=== PATIENT | male | born 1960 | race Caucasian/White ===

== ENCOUNTER → 2018-03-20 10:54 | Outpatient (CLI) | payer OTHER, MEDICAID, SELFPAY ==
--- NOTE | 2018-03-20 | DI.US.S_ITS ---
PROCEDURE: US ARTERIAL DUPLEX LE BI INDICATIONS: PERIPHERAL VASCULAR DISEASE TECHNIQUE: Color and pulse Doppler interrogation was performed of both lower extremity arterial systems, with image documentation. COMPARISON: None. FINDINGS: Normal-appearing, triphasic and biphasic waveforms are seen. The flow velocities are likewise within normal limits. No focal area of increased flow velocity is seen to suggest a focal stenosis. Antegrade flow is confirmed to the distal aspects of each of the trifurcation vessels. No significant rawls scale abnormality is seen. IMPRESSION: No hemodynamically significant stenosis can be seen. Dictated by: Mookie Chávez M.D. on 03/20/2018 at 12:12 Approved by: Mookie Chávez M.D. on 03/20/2018 at 12:13
== END ==
PROVIDERS: Visit Provider Family Medicine
DX: I73.9 Peripheral vascular disease, unspecified (principal)
CPT/HCPCS: 93925

== ENCOUNTER → 2018-09-01 08:09 | Outpatient (CLI) | payer OTHER, MEDICAID, SELFPAY ==
--- NOTE | 2018-09-01 09:41 | PM.TREADMILL ---
Cardiac Stress Test Report Referral & Results Date Patient Seen: 09/01/18 Requesting provider: Carmine Mcknight Indication: Tachycardia, dizziness, murmur Rest ECG: Unremarkable Procedure Note: Today following both written and verbal informed consent, the patient was exercised according to a standard [facility] protocol. The patient exercised for a total of 8 minutes 16 seconds achieving a maximum heart rate of 159. Patient's maximum systolic blood pressure was 170. This was an estimated 10.1 MET's. Patient did experience lightheadedness and dizziness at the end of exercise which caused him to stop the test. No cardiac dysrhythmia was noted. He did have more frequent PVCs beginning about that time until his heart rate slowed down some. No ST-T segment changes Normal heart rate and blood pressure response to exercise Function aerobic impairment rated about 5% on the sedentary scale Impression: No evidence of ischemia Increased PVCs with increased activity and at least temporally correlated with symptoms. (Patient reports normal echo done previously however) Clinical correlation suggested Please note: Actual ECG tracings can be found in the PACS system.
== END ==
PROVIDERS: PCP Family Medicine; Visit Provider Internal Medicine Cardiovascular Disease
DX: R01.1 Cardiac murmur, unspecified (principal); R00.0 Tachycardia, unspecified; R42 Dizziness and giddiness
CPT/HCPCS: 93016; 93017; 93018

== ENCOUNTER → 2019-09-12 09:33 | Outpatient (CLI) | payer OTHER, SELFPAY ==
[2019-09-13 08:29] LABS: COVID19 Sendout Not Detected (Not Detect)
== END ==
PROVIDERS: PCP Family Medicine; Visit Provider Physician Assistant
DX: Z01.818 Encounter for other preprocedural examination (principal)
CPT/HCPCS: 87635

== ENCOUNTER 2019-09-15 14:34 | Outpatient (CLI) | payer OTHER, SELFPAY ==
[2019-09-15] VITALS (8 sets, daily range): BP systolic 118–134; BP diastolic 65–89; PULSE 85–93; RESP 15–16; TEMP 36.5; O2SAT 91–96
--- NOTE | 2019-09-15 14:35 | DI.RAD.S_ITS ---
PROCEDURE: PAIN L/S FACET INJ/BLK 1ST PAVAN COMPARISON: None. INDICATIONS: SPONDYLOSIS FINDINGS: Fluoroscopic spot filming was performed to verify placement of spinal needles at the L4-L5, L5-S1 level(s), as labeled on the films. Appropriate location(s) of the needle tip(s) was confirmed by injection of iodinated contrast. Dictated by: Chan Betancourt M.D. on 09/15/2019 at 16:08 Approved by: Chan Betancourt M.D. on 09/15/2019 at 16:09
[2019-09-15] MEDS: BETAMETHASONE 30 MG/5 ML MDV 12 MG INJ (15:04)
[2019-09-15] MEDS: BUPIVACAINE 0.5% (PF) VIAL 5 ML INJ (15:04)
[2019-09-15] MEDS: MIDAZOLAM 5 MG/5 ML VIAL IV (15:04)
[2019-09-15] MEDS: IOPAMIDOL 15 ML VIAL 3 ML INJ (15:04)
[2019-09-15] MEDS: LIDOCAINE 1% 20 ML 10 ML INJ (15:04)
[2019-09-15] MEDS: fentaNYL 100 MCG/2 ML INJ 50 MCG IV (15:04)
--- NOTE | 2019-09-15 15:23 | P.PCN_ITS ---
Procedures Date/Time Date of procedure: 09/15/19 Time of procedure: 15:24 General Procedure description: PREOP DIAGNOSIS 1. FACET ARTHROPATHY 2. AXIAL LBP 3. MULTILEVEL DDD POST OP DIAGNOSIS 1. FACET ARTHROPATHY 2. AXIAL LBP 3. MULTILEVEL DDD PROCEDURES 1. FLUORSCOPICALLY GUIDED CONTRAST CONTROLLED FACET JOINT INJECTIONS BILATERAL L4/5, L5/S1 PHYSICIAN: Shiva Martell, DO INDICATIONS Jailene is referred for treatment of Axial LBP FINDINGS Multilevel Facet Arthropathy with Clinically significant axial LBP DESCRIPTION OF PROCEDURE Fluoroscopically guided, contrast-controlled bilateral L4/5, L5/S1 facet joint injections. Following review of allergy and review of potential side effects and complications, including, but not necessarily limited to, infection, allergic reaction, local tissue breakdown, stroke, temporary or permanent nerve injury, paralysis, and possible , the patient indicated that the patient understood and agreed to proceed. An informed consent document was signed by the patient, witnessed by a nurse, and placed in the patient's chart. Additionally, other treatment options including medications, modalities, and physical therapy were reviewed with the patient. After review of previous anaesthesic history and IV conscious sedation the patient was deemed safe to proceed with todays procedure with IV conscious sedation as ASA class II designation. Safety time-out was performed to confirm patient ID, procedure to be performed and site of procedure. IV sedation was accomplished with a combination of 2mg of Versed and 50mcg of Fentanyl was administered by the RN after DO order, titrated to patient comfort during the course of the procedure while the patient remained responsive to all verbal commands In the prone position, following sterile prep and drape of the lumbar region, the posterior aspect of the L4/5, L5/S1 facet joints were identified fluoroscopically. The skin was anesthetized via a 25-gauge 1.5-inch needle with 1% lidocaine solution into the corresponding facet joints. At this point, a 22- gauge 3.5-inch spinal needle was atraumatically introduced and advanced under fluoroscopic guidance into the corresponding facet joints. Following negative aspiration, injections of approximately 0.2cc of Isovue 200 confirmed interarticular placement without vascular uptake. The identical procedure was then performed at the L4/5, L5/S1 facet joints on the left. Radiological data, including multiple fluoroscopic views of the lumbosacral spine, reveal a spinal needle at the L4/5, L5/S1 facet joints bilaterally. Subsequent views show flow of contrast material both superiorly and inferiorly within the joint space without vascular or intrathecal uptake. At this point, a total of 0.5cc including a mixture of 0.25cc Marcaine and 0.25cc betamethasone was injected without complication into each of the corresponding facet joints. The patient tolerated the procedure well without signs or symptoms of complications prior to transfer to the recovery area continued monitoring without incident. The patient was then transferred to the recovery area where they were observed for an appropriate period of time after the injection. The patient reported a VAS score of 7 prior to the procedure and a post- procedure VAS of 0. Total Fluoroscopy Time: 12 seconds Total Conscious Sedation Time: 24min POST OP INSTRUCTIONS The patient was provided a Pain Log to continue to record their response to the target-specific procedure prior to follow-up visit with their referring physician. Additionally, specific post-injection care instructions and a contact number to our office were provided if concerns arise regarding possible complications associated with the procedure are suspected. Shiva Martell, Complications: none
--- NOTE | 2019-09-15 15:33 | PC.NURSE ---
Tolerated procedure well, assisted off table to wc with 1PA. Transported to post procedure for continued monitoring by JALEEL Xiao
== END 2019-09-15 15:41 | disposition home or self-care (01) ==
LOC: RAD 14:34
PROVIDERS: Referring Provider Physical Medicine & Rehabilitation; Visit Provider Physical Medicine & Rehabilitation
DX: M47.816 Spondylosis without myelopathy or radiculopathy, lumbar region (principal); M47.817 Spondylosis without myelopathy or radiculopathy, lumbosacral region; M51.36 Other intervertebral disc degeneration, lumbar region; M51.37 Other intervertebral disc degeneration, lumbosacral region
CPT/HCPCS: 64493; 64494; 99152; J0702; J2250; J3010

== ENCOUNTER → 2020-01-30 14:13 | Outpatient (CLI) | payer OTHER, SELFPAY ==
[2020-02-01 07:52] LABS: COVID19 Sendout Not Detected (Not Detect)
== END ==
PROVIDERS: Visit Provider Physician Assistant
DX: Z01.812 Encounter for preprocedural laboratory examination (principal)
CPT/HCPCS: 87635

== ENCOUNTER 2020-02-02 14:31 | Outpatient (CLI) | payer OTHER, SELFPAY ==
[2020-02-02] VITALS (8 sets, daily range): BP systolic 120–143; BP diastolic 78–97; PULSE 83–93; RESP 15–25; O2SAT 94–96
--- NOTE | 2020-02-02 14:31 | DI.RAD.S_ITS ---
PROCEDURE: PAIN L/S FACET INJ/BLK 1ST PAVAN COMPARISON: [facility], , PAIN L/S FACET INJ/BLK 1ST PAVAN, 09/15/2019, 14:08. INDICATIONS: SPONDYLOSIS FINDINGS: Fluoroscopic spot filming was performed to verify placement of spinal needles at the right L4, L5, S1 and left L4, L5, S1 level(s). Appropriate location(s) of the needle tip(s) was confirmed by injection of iodinated contrast. IMPRESSION: Intraoperative guidance provided. Dictated by: Prasanth Blanca M.D. on 02/02/2020 at 17:40 Approved by: Prasanth Blanca M.D. on 02/02/2020 at 17:42
[2020-02-02] MEDS: fentaNYL 100 MCG/2 ML INJ 50 MCG IV (15:42)
[2020-02-02] MEDS: MIDAZOLAM 5 MG/5 ML VIAL IV (15:42)
[2020-02-02] MEDS: BUPIVACAINE 0.5% (PF) VIAL 5 ML INJ (15:49)
[2020-02-02] MEDS: IOPAMIDOL 15 ML VIAL 3 ML INJ (15:49)
[2020-02-02] MEDS: LIDOCAINE 1% 20 ML 10 ML INJ (15:49)
--- NOTE | 2020-02-02 16:00 | P.PCN_ITS ---
Date/Time/Diagnoses Date of procedure: 02/02/20 Time of procedure: 16:00 Pre-procedure diagnosis: 1. FACET ARTHROPATHY Post-procedure diagnosis: same Procedure Notes Procedure: 1. BILATERAL- L4, L5 and S1 DIAGNOSTIC MB BLOCKS with LA Anesthetic Indications: Jailene is referred by Dr. Francis for treatment of Bilateral Axial LBP. Physician: Shiva Martell Total Fluoroscopy time (seconds): 14 Total sedation minutes: 16 Complications: none Procedure in detail & Post-procedure care: DESCRIPTION OF PROCEDURE Fluoroscopically guided, contrast-controlled bilateral L4, L5 and S1 medial branch blocks with 0.5cc of 0.5% Marcaine. Following review of allergy and review of potential side effects and complications, including, but not necessarily limited to, infection, allergic reaction, local tissue breakdown, nerve injury, paralysis, stroke and possible , the patient indicated that the patient understood and agreed to proceed. An informed consent document was signed by the patient, witnessed by a nurse, and placed in the patient's chart. After review of previous anaesthesic history and IV conscious sedation the patient was deemed safe to proceed with today's procedure with IV conscious sedation as ASA class II designation. Safety time-out was performed to confirm patient ID, procedure to be performed and site of procedure. IV sedation was accomplished with a combination of 3mg of Versed and 50mcg of Fentanyl was administered by the RN after DO order, titrated to patient comfort during the course of the procedure while the patient remained responsive to all verbal commands In the prone position, following sterile prep and drape of the lumbar region, the right L4, L5 and S1 anatomical location of the medial branch of the dorsal ramus was identified fluoroscopically. Subsequently an anesthetic skin wheal using 1% lidocaine solution was initiated at each of the anatomical spots. Subsequently then a 22-gauge 3.5-inch spinal needle was atraumatically introduced and advanced under fluoroscopic guidance at each of the corresponding sites at the right L4, L5 and S1 MB. After negative aspiration, 0.2cc of Isovue 200 was injected, confirming placement without vascular or intrathecal uptake. Subsequently then 0.5cc of 0.5% Marcaine solution was injected at each of the corresponding sites at the right L4, L5 and S1 medial branch locations. The identical procedure was replicated on the left. The patient tolerated the procedure well without signs or symptoms of complications prior to transfer to the recovery area continued monitoring without incident. Post-procedure, the patient was monitored initiating provocative activities to measure the amount of relief from block of the facetogenic pain. The patient reported a VAS of 7 prior to the procedure and a post-procedure VAS of 1. It has been a pleasure to assist in the diagnostic and therapeutic care of your patient. POST OP INSTRUCTIONS The patient was provided with a Pain Log to complete over the next several hours and subsequent days prior to the patient's follow up with the ordering physician. 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 The patient is aware, was provided, once again, with a Pain Log and will follow up with the referring physician for review and clinical correlation
--- NOTE | 2020-02-02 16:35 | PC.NURSE ---
No ecg monitor in post procedure due to one monitor being used by other recovering patient.
== END 2020-02-02 16:20 | disposition home or self-care (01) ==
PROVIDERS: PCP Family Medicine; Referring Provider Family Medicine; Visit Provider Physical Medicine & Rehabilitation
DX: M47.817 Spondylosis without myelopathy or radiculopathy, lumbosacral region (principal); M54.5 Low back pain
CPT/HCPCS: 64493; 64494; 99152; J2250; J3010

== ENCOUNTER → 2020-02-22 09:28 | Outpatient (CLI) | payer OTHER, SELFPAY ==
--- NOTE | 2020-02-22 09:29 | DI.RAD.S_ITS ---
PROCEDURE: XR LUMBAR SPINE MIN 4V INDICATIONS: Lumbar radiculopathy TECHNIQUE: 5 views of the lumbar spine were acquired. COMPARISON: [facility], , L-SPINE 2-3 VIEWS, 06/13/2017, 10:33. FINDINGS: Bones: 5 nonrib-bearing vertebrae are present. There is normal bony alignment. No vertebral body compression fractures. No suspicious bony lesions. Note is made of a mild degree of degenerative disc disease along the thoracolumbar junction and upper lumbar spine with mild to moderate degenerative disc disease and facet osteoarthritis at L4-5 and moderately severe such degenerative changes at L5-S1. Soft tissues: Overlying bowel gas pattern is normal. No suspicious soft tissue calcifications. Oblique images: No pars defects. IMPRESSION: The degenerative disc disease and facet osteoarthritis is mild to moderate at L4-5 and moderately severe at L5-S1 to the degree that significant spinal and foraminal stenosis through these 2 areas likely would be present. Dictated by: Jez Kat M.D. on 02/22/2020 at 11:13 Approved by: Jez Kat M.D. on 02/22/2020 at 11:14
== END ==
PROVIDERS: PCP Family Medicine; Referring Provider Physical Medicine & Rehabilitation; Visit Provider Physical Medicine & Rehabilitation
DX: M47.27 Other spondylosis with radiculopathy, lumbosacral region (principal); M47.26 Other spondylosis with radiculopathy, lumbar region; M51.16 Intervertebral disc disorders with radiculopathy, lumbar region; M51.17 Intervertebral disc disorders with radiculopathy, lumbosacral region
CPT/HCPCS: 72110

== ENCOUNTER → 2020-03-14 15:26 | Outpatient (CLI) | payer OTHER, SELFPAY ==
[2020-03-14 16:35] LABS: COVID19 -Nasal RAPID Negative (Negative)
== END ==
PROVIDERS: PCP Family Medicine; Visit Provider Physician Assistant
DX: Z11.59 Encounter for screening for other viral diseases (principal)
CPT/HCPCS: 87635

== ENCOUNTER 2020-03-15 07:22 | Outpatient (CLI) | payer OTHER, SELFPAY ==
[2020-03-15] VITALS (13 sets, daily range): BP systolic 104–131; BP diastolic 64–84; PULSE 72–88; RESP 14–22; TEMP 36.3; O2SAT 92–96
--- NOTE | 2020-03-15 07:45 | DI.RAD.S_ITS ---
PROCEDURE: PAIN L/S MED/LAT N RFA BILAT INDICATIONS: SPONDYLOSIS COMPARISON: None. FINDINGS: Fluoroscopic spot filming was performed to verify placement of spinal needles at the L4, L5, S1 level(s) for bilateral medial branch block procedures open (6 total close), as labeled on the films. Appropriate location(s) of the needle tip(s) was confirmed by injection of iodinated contrast. IMPRESSION: Successful bilateral needle tip localization for medial branch block procedures at the lower lumbosacral spine, as noted above. Six total procedures. Dictated by: Jez Kat M.D. on 03/15/2020 at 9:39 Approved by: Jez Kat M.D. on 03/15/2020 at 9:40
[2020-03-15] MEDS: fentaNYL 100 MCG/2 ML INJ 50 MCG IV (08:24)
[2020-03-15] MEDS: MIDAZOLAM 5 MG/5 ML VIAL IV (08:24)
[2020-03-15] MEDS: BUPIVACAINE 0.5% (PF) VIAL 5 ML INJ (08:28)
[2020-03-15] MEDS: LIDOCAINE 1% 20 ML 10 ML INJ (08:28)
--- NOTE | 2020-03-15 09:03 | P.PCN_ITS ---
Date/Time/Diagnoses Date of procedure: 03/15/20 Time of procedure: 09:03 Pre-procedure diagnosis: 1. RECALCITRANT FACET ARTHROPATHY Post-procedure diagnosis: same Procedure Notes Procedure: 1. BILATERAL L4 AND L5 MEDIAL BRANCH RADIOFREQUENCY NEUROTOMY AND S1 DORSAL RAMUS BRANCH RADIOFREQUENCY NEUROTOMY Indications: Jailene is referred by Dr. Francis for treatment of facet arthropathy. Physician: Shiva Martell Total Fluoroscopy time (seconds): 22 Total sedation minutes: 34 Complications: none Procedure in detail & Post-procedure care: DESCRIPTION OF PROCEDURE Right L4 and L5 medial branch radiofrequency neurotomy and right S1 dorsal ramus radiofrequency neurotomy under fluoroscopy with conscious sedation. The patient is well known to this clinic having undergone previous facet injections with good but temporary relief. The patient has experienced appropriate, concordant relief with previous facet and median branch blocks but the patient's pain has been recalcitrant to further conservative measures. Therefore, based upon the patient's relief and persistent symptoms, the patient is considered an appropriate candidate for facet rhizotomy. All of the patient's questions regarding the risks versus benefits of the procedure, including, but not limited to, bleeding, infection, temporary as well as lasting nerve injury, paralysis, stroke, and , as well treatment alternatives were answered to satisfaction. After obtaining informed consent, denial of pertinent drug allergies, as well as being made aware of the potential risks of bleeding, infection, spinal cord trauma, paralysis, temporary and permanent nerve damage, seizure, stroke, and possible , the patient was brought to the fluoroscopy suite and positioned prone on the fluoroscopy table. The lumbar region was prepped with Betadine and covered with a fenestrated drape in the usual sterile fashion. Appropriate monitors applied including pulse oximeter, pulse, and blood pressure for regular monitoring throughout the procedure. After review of previous anaesthesic history and IV conscious sedation the patient was deemed safe to proceed with today's procedure with IV conscious sedation as ASA class II designation. Safety time-out was performed to confirm patient ID, procedure to be performed and site of procedure. IV sedation was accomplished with a combination of 2mg of Versed and 50mcg of Fentanyl adminis tered by the RN after DO order, titrated to patient comfort during the course of the procedure while the patient remained responsive to all verbal commands. After local infiltration using 1% lidocaine, under fluoroscopic guidance, a 10- cm RF insulated needle with a 10-mm active tip was positioned parallel to the junction of the right sacral ala and the superior articulating process where the S1 dorsal ramus resides. Needle placement was confirmed with motor stimulation of .5v on the right which produced local stimulation without radicular component. The stimulation was then increased to 2v with, once again, only local multifidus stimulation without radicular component. The needle was then removed and the identical procedure was performed along the length of the right L5 medial branch with motor stimulation at .7v on the right. The identical procedure was once again performed along the length of the right L4 medial branch with motor stimulation of .5v on the right. The medial branches were then anesthetised with 0.5% Marcaine. This was then followed by two discreet lesions performed at 80 degrees Celsius for 90 seconds each. The identical procedure was repeated on the left. The patient tolerated the procedure well without signs or symptoms of complications prior to transfer to the recovery area continued monitoring without incident. The patient was then transferred to the recovery area where they were observed for an appropriate period of time after the injection. The patient reported a VAS score of 9 prior to the procedure and a post-procedure VAS of 0. POST OP INSTRUCTIONS The patient was provided a Pain Log to continue to record the patient's response to the target-specific procedure prior to the patient's follow-up visit with the referring physician. Additionally, specific post-injection care instructions and a contact number to our office were provided if concerns arise regarding possible complications associated with the procedure are suspected.
== END 2020-03-15 09:27 | disposition home or self-care (01) ==
PROVIDERS: PCP Family Medicine; Referring Provider Family Medicine; Visit Provider Physical Medicine & Rehabilitation
DX: M47.817 Spondylosis without myelopathy or radiculopathy, lumbosacral region (principal); M47.816 Spondylosis without myelopathy or radiculopathy, lumbar region
CPT/HCPCS: 64635; 64636; 99152; 99153; J2250; J3010

== ENCOUNTER → 2022-07-12 12:11 | Outpatient (CLI) | payer OTHER, SELFPAY ==
--- NOTE | 2022-07-12 | DI.MRI.S_ITS ---
PROCEDURE: MR PELIS WO/W CON INDICATIONS: Elevated prostate specific antigen [PSA] TECHNIQUE: Coronal HASTE, axial T1 FSE with fat saturation, 3-plane nonbreath-hold T2 FSE. After the administration of contrast, dynamic axial, delayed axial and coronal VIBE or 2-D FLASH with fat saturation through the pelvis. Optional diffusion weighted imaging and ADC may be performed. COMPARISON: None. FINDINGS: Image quality: Diffusion weighted and dynamic contrast enhanced images are diagnostic. Prostate: Gland size is 5.9 x 4.6 x 6.1 cm; ellipsoid gland volume is 45 mL. Lesion 1: Location: Anterior left peripheral zone at the base (series 4, image 16 and series 6, image 15) Size: 2.3 x 2.0 centimeter T2 signal: Partially capsulated nodule DWI: Moderately hyperintense ADC: Moderately hypointense Enhancement: Positive Extracapsular extension: No PI-RADS score: 3 Genitourinary system: Bladder wall thickness is normal. Trabeculated bladder wall. Distal ureters are non distended. Bowel and peritoneum: No pathologic free pelvic fluid. Inferior colon and small bowel loops are normal in caliber. Nodes and vessels: No pelvic or inguinal adenopathy by size criteria. Iliac vessels are normal in caliber. Soft tissues: No inguinal hernias. Bones: Marrow demonstrates normal overall signal, without lesions to suggest metastases. IMPRESSION: Prostatomegaly. PI-RADS 3 lesion, as above. Dictated by: Sunny Torre M.D. on 07/12/2022 at 15:15 Approved by: Sunny Torre M.D. on 07/12/2022 at 15:21
== END ==
PROVIDERS: PCP Family Medicine; Referring Provider Family Medicine; Visit Provider Family Medicine
DX: R97.20 Elevated prostate specific antigen [PSA] (principal); N40.0 Benign prostatic hyperplasia without lower urinary tract symptoms
CPT/HCPCS: 72197